=== PATIENT | female | born 1965 | race Asian ===

== ENCOUNTER 2021-11-20 05:49 | Outpatient (CLI) | payer OTHER ==
[~2021-11-20] VITALS: Ht 154.9 cm; Wt 63.6 kg
[2021-11-21] MEDS ORDERED: EZET10TA49 PO (14:32)
[2021-11-21] MEDS ORDERED: AMLO-250 PO (14:32)
[2021-11-21] MEDS ORDERED: HYDR25TA4 PO (14:32)
[2021-11-21] MEDS ORDERED: ATOR40TA70 PO (14:32)
[2021-11-21] MEDS ORDERED: LOSA100T57 PO (14:32)
== END 2021-11-21 14:33 ==
LOC: PREOP 05:49
PROVIDERS: ATTEND Internal Medicine
DX: Z01.818 Encounter for other preprocedural examination (principal)

== ENCOUNTER 2021-11-29 08:17 | Day surgery (SDC) | payer OTHER ==
--- NOTE | 2021-11-20 08:29 | HISTORY AND PHYSICAL ---
DATE OF SERVICE: COLONOSCOPY HISTORY AND PHYSICAL DATE OF ADMISSION: HISTORY OF PRESENT ILLNESS: The patient is a 56-year-old white female referred for her first screening colonoscopy. She is deemed to be of average risk as she is not aware of any family history for GI tract malignancy. She reports her mother did have some colonic involvement with the Behcet's disease, is not aware of any other GI tract pathology in regard to family history. She denies abdominal pain, bowel habit change, melena or bright red blood per rectum. PAST MEDICAL HISTORY: Significant for hypertension and hyperlipidemia with no known history of coronary artery disease. MEDICATIONS ON ADMISSION: Include atorvastatin 40 mg daily, losartan 100 mg daily and hydrochlorothiazide 25 mg daily. PHYSICAL EXAMINATION: GENERAL: Reveals an female, who appears to be in no acute distress, 5 feet 1 inch tall, 144 pounds with a BMI of 27. HEENT: Unremarkable. VITAL SIGNS: Blood pressure is 130/80. CHEST: Clear. CARDIOVASCULAR: Reveals regular rate and rhythm without murmur, S3 or S4. ABDOMEN: Soft, supple without mass, organomegaly or tenderness. EXTREMITIES: Reveal no cyanosis, clubbing or edema. ASSESSMENT AND PLAN: The patient is set up for her first screening colonoscopy, deemed to be of average risk as noted above. Prep instructions were given and questions were answered. Job ID: [id number] DocumentID: [id number] Dictated Date: 10/31/2021 17:23:54 Deck Molder Date: 10/31/2021 17:45:01 Dictated By: GINETTE GHOSH MD
[2021-11-29] VITALS (8 sets, daily range): BP systolic 100–140; BP diastolic 67–97
[~2021-11-29] VITALS: Ht 154.9 cm; Wt 63.6 kg
[~2021-11-29 08:17] MED LIST: AMLO-250 PO; ATOR40TA70 PO; EZET10TA49 PO; HYDR25TA4 PO; LOSA100T57 PO
[2021-11-29] MEDS ORDERED: LACTATED RINGERS 1,000 ML IV STA (08:26)
--- NOTE | 2021-11-29 08:34 | Pre-Op Note & Conscious Sedat ---
Pre-Operative Progress Note Date H&P Reviewed: Nov 29, 2021 Time H&P Reviewed: 08:34 History & Physical: H&P Reviewed, Patient Examed, No changes noted Pre-Op Diagnosis: Screening colon Conscious Sedation Pre-Proced ASA Score 2 For ASA 3 and 4: Consider anesthesia and medical clearance. Also, for patients with a history of failed moderate sedation consider anesthesia. Airway Lungs Heart ASA score ASA 1: a normal healthy patient ASA 2: a patient with a mild systemic disease (mid diabetes, controlled hypertension, obesity ASA 3: a patient with a severe systemic disease that limits activity (angina, COPD, prior Myocardial infarction) ASA 4: a patient with an incapacitating disease that is a constant threat to life (CHF, renal failure) ASA 5: a moribund patient not expected to survive 24 hrs. (ruptured aneurysm) ASA 6: a declared brain- patient whose organs are being harvested. For emergent operations, add the letter E after the classification Mallampati Classification Grade 2 Sedation Plan Analgesia, Amnesia, Plan communicated to team members, Discussed options with patient/fam, Discussed risks with patient/fam The patient is an appropriate candidate to undergo the planned procedure, sedation, and anesthesia. The patient immediately re-assessed prior to indication. GINETTE GHOSH MD Nov 29, 2021 08:34
[2021-11-29] MEDS ORDERED: PROPOFOL INJECTION 50 ML IV ONE (09:47)
[2021-11-29] MEDS ORDERED: MIDAZOLAM 2 MG/2 ML (VERSED) VIAL ONE (09:47)
--- NOTE | 2021-11-29 11:49 | Anesthesia-General Post-Op ---
MAC Patient Condition Mental Status/LOC: Same as Preop Cardiovascular: Satisfactory Nausea/Vomiting: Absent Respiratory: Satisfactory Pain: Controlled Complications: Absent Post Op Complications Complications None Follow Up Care/Instructions Patient Instructions None needed. Anesthesiology Discharge Order Discharge Order Patient is doing well, no complaints, stable vital signs, no apparent adverse anesthesia problems. No complications reported per nursing. RUDDY DICK CRNA Nov 29, 2021 11:49
--- NOTE | 2021-11-29 15:26 | OPERATIVE REPORT ---
DATE OF SERVICE: COLONOSCOPY SUMMARY INDICATION FOR THE PROCEDURE: Screening. DESCRIPTION OF PROCEDURE: The patient was placed in the left lateral decubitus position. Prior to undergoing the colonoscopy, a digital rectal evaluation was performed. Anal sphincter tone was normal and the perianal reflexes intact. The colonoscope was then inserted into the rectum and under direct visualization advanced to the cecum. The cecum was identified by identification of the and ileocecal valve and the cecal strap. Photographic documentation was obtained. Quality of the prep was good. FINDINGS: There was no evidence for internal or external hemorrhoids. The rectum, sigmoid colon, descending colon, transverse colon, ascending colon, and cecum were unremarkable. ASSESSMENT: Normal colonoscopy to the cecum. We would advocate consideration for repeat screening colonoscopy in 10 years. Job ID: [id number] DocumentID: [id number] Dictated Date: 11/29/2021 10:08:53 Water Supply Technician Date: 11/29/2021 15:25:59 Dictated By: GINETTE GHOSH MD MTDD
== END 2021-11-29 11:05 | disposition home or self-care (01) ==
LOC: ENDO 08:17
PROVIDERS: ATTEND Internal Medicine
DX: Z12.11 Encounter for screening for malignant neoplasm of colon (principal)

== ENCOUNTER → 2022-11-24 | Outpatient (CLI) | payer OTHER ==
[~2022-11-24] MED LIST changes: -LOSA100T57 PO; +LOSA100T58 PO
--- NOTE | 2022-11-24 10:38 | Diagnostic Imaging Report ---
INDICATION: Fall with right forearm pain. TECHNIQUE: AP and lateral views of the right forearm were obtained. FINDINGS: No fracture or acute bony abnormality is seen. IMPRESSION: Negative right forearm. Dictated by: Dictated on workstation # [id number]
--- NOTE | 2022-11-24 10:50 | Diagnostic Imaging Report ---
INDICATION: Fall with rt wrist/elbow pain. TECHNIQUE: 3 views of the right wrist. CORRELATION STUDY: None. FINDINGS: Small somewhat triangular shaped bone fragment projects at the dorsal distal aspect of the wrist. Suspect for an avulsion fracture, age indeterminate, and donor site is indeterminate. Remaining osseous structures of the wrist are otherwise intact and unremarkable. Alignment anatomic. The visualized soft tissues appearing unremarkable. IMPRESSION: Small avulsion type fracture fragment of the dorsal wrist. Donor site and age are somewhat indeterminate, perhaps the triquetrum. Dictated by: Dictated on workstation # [id number]
--- NOTE | 2022-11-27 12:43 | Diagnostic Imaging Report ---
INDICATION: Routine screening. COMPARISON: 03/22/2014. TECHNIQUE: 2D and 3D bilateral screening mammography was performed with CAD. FINDINGS: Both breasts are heterogeneously dense, limiting the sensitivity of mammography. The parenchymal pattern is stable. No mass or malignant-appearing microcalcifications are identified. The axillae are unremarkable. IMPRESSION: No mammographic features suspicious for malignancy are identified. ACR BI-RADS Category 1: Negative. Result letter will be mailed to the patient. Note: At least 10% of breast cancer is not imaged by mammography. Dictated by: Dictated on workstation # [id number]
== END ==
LOC: RAD 08:30
PROVIDERS: ATTEND Nurse Practitioner Family
DX: Z12.31 Encounter for screening mammogram for malignant neoplasm of breast (principal); S62.101A Fracture of unspecified carpal bone, right wrist, initial encounter for closed fracture; M79.631 Pain in right forearm; X58.XXXA Exposure to other specified factors, initial encounter
CPT/HCPCS: 73090; 73110; 77063; 77067